=== PATIENT | female | born 1945 | race Caucasian/White ===

== ENCOUNTER 2022-11-18 00:47 | Day surgery (SDC) | payer MEDICARE, SELFPAY ==
[2022-11-09 15:12] VITALS: BMI 27.5
[2022-11-18 09:26] VITALS: PULSE 70; RESP 18; TEMP 36.3; O2SAT 97; BMI 27.3
[2022-11-18] MEDS: LACTATED RINGERS 1,000 ML 150 ML IV CONT (09:38)
--- NOTE | 2022-11-18 09:43 | PM.HPGS ---
History of Present Illness History of Present Illness Consent: Risks, benefits, and alternatives have been discussed and questions answered. Patient agrees to proceed with procedure. Chief complaint: positive cologuard Narrative: Lisa Littlejohn is a 77 year old female was referred for colon cancer screening. She had recently performed a Cologuard test which was positive. [facility] Family History Family History Sibling Family history of Alzheimer's disease Father Family history of lung cancer Social History Social History Smoking packs per day: 1 Smoking cigarettes per day: 20.0 Years smoked: 30 Smoking pack-years: 30.00 Smoking status: Former smoker Tobacco type: cigarettes Smoking end date: 09/13/01 Alcohol intake: current Substance use type: does not use Living arrangements: with family Spiritual care concerns: No Meds Home Medications and Allergies Home Medications Medication Instructions Recorded Confirmed Type Ca 600 mg-D3 20 mcg-mag oxide 50 1 tablet PO DAILY 11/09/22 11/18/22 History wh-La-[place]-manganese-boron tablet (Calcium 600-D3 Plus (mag-zinc)) amlodipine 5 mg tablet 5 mg PO DAILY 11/09/22 11/18/22 History ascorbic acid (vitamin C) 1,000 mg 1 g PO DAILY 11/09/22 11/18/22 History tablet atorvastatin 20 mg tablet 20 mg PO DAILY 11/09/22 11/18/22 History carbamazepine 200 mg tablet 200 mg PO TID 11/09/22 11/18/22 History cholecalciferol (vitamin D3) 25 25 mcg PO DAILY 11/09/22 11/18/22 History mcg (1,000 unit) tablet (Vitamin D3) cyanocobalamin (vitamin B-12) 500 500 mcg PO DAILY 11/09/22 11/18/22 History mcg tablet,extended release glucosamine sulfate 500 mg tablet 500 mg PO DAILY 11/09/22 11/18/22 History (Glucosamine) losartan 100 1 tablet PO DAILY 11/09/22 11/18/22 History mg-hydrochlorothiazide 25 mg tablet Allergies Allergy/AdvReac Type Severity Reaction Status Date / Time No Known Allergies Allergy Verified 11/18/22 09:22 Vital Signs Vital Signs - 24 hr 11/18/22 09:26 Temperature 36.3 C L Pulse Rate 70 Respiratory Rate 18 Pulse Oximetry 97 Oxygen Delivery Room Air Assessment and Plan Assessment and plan (1) Colon cancer screening: Code(s): Z12.11 - Encounter for screening for malignant neoplasm of colon Status: Acute Assessment and Plan: Colonoscopy with possible biopsy or polypectomy or cautery or injection of substances.
--- NOTE | 2022-11-18 09:51 | P.PNAN_ITS ---
Anes - Initial Pre Proc Eval Procedure: Operation Date: 11/18/22 10:30 Proposed Procedures p Colonoscopy - Ifeanyi Cyr MD Date/Time: 11/18/22 09:51 Surgeon: Ifeanyi Cyr MD Pre Op Diagnosis: positive cologuard Patient Data Age: 77 Gender: F Height: 1.65 m Weight: 74.5 kg Last Vital Signs Temp 97.3 F L 11/18/22 09:26 Pulse 70 11/18/22 09:26 Resp 18 11/18/22 09:26 Pulse Ox 97 11/18/22 09:26 O2 Del Method Room Air 11/18/22 09:26 Allergies Allergy/AdvReac Type Severity Reaction Status Date / Time No Known Allergies Allergy Verified 11/18/22 09:22 Home Medications Medication Instructions Recorded Confirmed Type Ca 600 mg-D3 20 mcg-mag oxide 50 1 tablet PO DAILY 11/09/22 11/18/22 History re-Dz-emalyz-manganese-boron tablet (Calcium 600-D3 Plus (mag-zinc)) amlodipine 5 mg tablet 5 mg PO DAILY 11/09/22 11/18/22 History ascorbic acid (vitamin C) 1,000 mg 1 g PO DAILY 11/09/22 11/18/22 History tablet atorvastatin 20 mg tablet 20 mg PO DAILY 11/09/22 11/18/22 History carbamazepine 200 mg tablet 200 mg PO TID 11/09/22 11/18/22 History cholecalciferol (vitamin D3) 25 25 mcg PO DAILY 11/09/22 11/18/22 History mcg (1,000 unit) tablet (Vitamin D3) cyanocobalamin (vitamin B-12) 500 500 mcg PO DAILY 11/09/22 11/18/22 History mcg tablet,extended release glucosamine sulfate 500 mg tablet 500 mg PO DAILY 11/09/22 11/18/22 History (Glucosamine) losartan 100 1 tablet PO DAILY 11/09/22 11/18/22 History mg-hydrochlorothiazide 25 mg tablet Patient hx anesthesia problems: none Family hx anesthesia problems: none Results Review: All pre-operative results and documents have been reviewed as part of the pre- operative evaluation. [facility] Family History Family History Sibling Family history of Alzheimer's disease Father Family history of lung cancer Social History Social History Smoking packs per day: 1 Smoking cigarettes per day: 20.0 Years smoked: 30 Smoking pack-years: 30.00 Smoking status: Former smoker Tobacco type: cigarettes Smoking end date: 09/13/01 Alcohol intake: current Substance use type: does not use Living arrangements: with family Spiritual care concerns: No Anes - Eval Final PreProcedure Day of Procedure 11/18/22 09:51 Patient weight: normal Heart: regular rate and rhythm Lungs: clear to auscultation Airway: Mallampati scale class II Neurological: alert and oriented Last oral intake: >/= 8 hours ASA classification: II Emergent: no Anesthetic plan: proceed Anesthesia type and monitoring: general GIVS and standard monitoring Results Review: All pre-operative results and documents have been reviewed as part of the pre- operative evaluation. Informed Consent: The patient's anesthetic plan and its attendant risks and benefits were discussed with the patient/family/POA. Questions were solicited and answers provided to the satisfaction of the patient/family/POA.
[2022-11-18 10:41] VITALS: BP 149/89; PULSE 69; RESP 19; O2SAT 99
[2022-11-18 10:51] VITALS: BP 150/94; PULSE 65; RESP 16; O2SAT 99
[2022-11-18 11:01] VITALS: BP 148/94; PULSE 66; RESP 15; O2SAT 100
--- NOTE | 2022-11-23 13:56 | PM.HPGS ---
History of Present Illness History of Present Illness Consent: Risks, benefits, and alternatives have been discussed and questions answered. Patient agrees to proceed with procedure. Chief complaint: positive cologuard Narrative: Lisa Littlejohn is a 77 year old female referred for colon cancer screening. She has been found have a positive Cologuard test. Review of Systems Review of Systems: All systems reviewed & are unremarkable except as noted in HPI and below PMFSH Family History Family History Sibling Family history of Alzheimer's disease Father Family history of lung cancer Social History Social History Smoking packs per day: 1 Smoking cigarettes per day: 20.0 Years smoked: 30 Smoking pack-years: 30.00 Smoking status: Former smoker Tobacco type: cigarettes Smoking end date: 09/13/01 Alcohol intake: current Substance use type: does not use Living arrangements: with family Spiritual care concerns: No Meds Home Medications and Allergies Home Medications Medication Instructions Recorded Confirmed Type Ca 600 mg-D3 20 mcg-mag oxide 50 1 tablet PO DAILY 11/09/22 11/18/22 History pm-Qy-qlcbuw-manganese-boron tablet (Calcium 600-D3 Plus (mag-zinc)) amlodipine 5 mg tablet 5 mg PO DAILY 11/09/22 11/18/22 History ascorbic acid (vitamin C) 1,000 mg 1 g PO DAILY 11/09/22 11/18/22 History tablet atorvastatin 20 mg tablet 20 mg PO DAILY 11/09/22 11/18/22 History carbamazepine 200 mg tablet 200 mg PO TID 11/09/22 11/18/22 History cholecalciferol (vitamin D3) 25 25 mcg PO DAILY 11/09/22 11/18/22 History mcg (1,000 unit) tablet (Vitamin D3) cyanocobalamin (vitamin B-12) 500 500 mcg PO DAILY 11/09/22 11/18/22 History mcg tablet,extended release glucosamine sulfate 500 mg tablet 500 mg PO DAILY 11/09/22 11/18/22 History (Glucosamine) losartan 100 1 tablet PO DAILY 11/09/22 11/18/22 History mg-hydrochlorothiazide 25 mg tablet Allergies Allergy/AdvReac Type Severity Reaction Status Date / Time No Known Allergies Allergy Verified 11/18/22 09:22 Exam Resp: Auscultation: clear to auscultation bilaterally Cardio: Rate: regular rate Rhythm: regular rhythm GI: GI Palp: Yes Soft to palpation and No Tenderness to palpation present (GI) Assessment and Plan Assessment and plan (1) Colon cancer screening: Code(s): Z12.11 - Encounter for screening for malignant neoplasm of colon Status: Acute Assessment and Plan: Colonoscopy with possible biopsy or polypectomy or cautery or injection of substances.
== END 2022-11-18 11:10 | disposition home or self-care (01) ==
PROVIDERS: PCP Family Medicine; Visit Provider Internal Medicine Gastroenterology
PROC: 0DJD8ZZ Inspection of Lower Intestinal Tract, Via Natural or Artificial Opening Endoscopic (ICD-10-PCS; CPT 45378; principal; 2022-11-18 10:30)
DX: Z12.11 Encounter for screening for malignant neoplasm of colon (principal); K57.30 Diverticulosis of large intestine without perforation or abscess without bleeding; R19.5 Other fecal abnormalities; Z87.891 Personal history of nicotine dependence
CPT/HCPCS: G0121; J2704; J7120

== ENCOUNTER 2024-03-01 19:17 | Emergency (ER) | payer MEDICARE, SELFPAY ==
[2024-03-01 19:30] VITALS: BP 156/85; PULSE 76; RESP 16; TEMP 36.8; O2SAT 97
[2024-03-01 19:33] VITALS: BP 156/85; PULSE 76; RESP 16; TEMP 36.8; O2SAT 97
--- NOTE | 2024-03-01 19:55 | ED.URI ---
HPI - URI/Sore Throat General Chief Complaint: Upper Respiratory Infection Stated Complaint: Cough/Chest Congestion Time Seen by Provider: 03/01/24 19:55 Source: patient and RN notes reviewed Mode of arrival: ambulatory Limitations: no limitations History of Present Illness HPI Narrative: 78-year-old female presents with concern for cough, chest congestion, shortness of breath, headache, body aches, chills, general malaise that started 6 days ago. She denies taking any huug-uou-zoetqbo medications for her symptoms. MD elicited complaint: cough Related Data Home Medications Medication Instructions Recorded Confirmed Ca 600 mg-D3 20 mcg-mag oxide 50 1 tablet PO DAILY 11/09/22 03/01/24 bx-Mv-wduhlr-manganese-boron tablet (Calcium 600-D3 Plus (mag-zinc)) amlodipine 5 mg tablet 5 mg PO DAILY 11/09/22 03/01/24 ascorbic acid (vitamin C) 1,000 mg 1 g PO DAILY 11/09/22 03/01/24 tablet atorvastatin 20 mg tablet 20 mg PO DAILY 11/09/22 03/01/24 carbamazepine 200 mg tablet 200 mg PO TID 11/09/22 03/01/24 cholecalciferol (vitamin D3) 25 25 mcg PO DAILY 11/09/22 03/01/24 mcg (1,000 unit) tablet (Vitamin D3) cyanocobalamin (vitamin B-12) 500 500 mcg PO DAILY 11/09/22 03/01/24 mcg tablet,extended release glucosamine sulfate 500 mg tablet 500 mg PO DAILY 11/09/22 03/01/24 (Glucosamine) losartan 100 1 tablet PO DAILY 11/09/22 03/01/24 mg-hydrochlorothiazide 25 mg tablet Allergies Allergy/AdvReac Type Severity Reaction Status Date / Time No Known Allergies Allergy Verified 03/01/24 19:33 Review of Systems Review of Systems: CONSTITUTIONAL: Reports malaise, chills, sweats EYES: Denies visual changes, redness, or discharge. ENT: Denies rhinorrhea, congestion, sinus pain, otalgia and sore throat. CARDIOVASCULAR: Denies chest pain, palpitations, or edema. RESPIRATORY: Reports cough, occasional dyspnea. GASTROINTESTINAL: Denies abdominal pain, nausea, vomiting, diarrhea SKIN: Denies rash or itching. MUSCULOSKELETAL: Reports myalgia. NEUROLOGIC: Reports headache. All systems reviewed & are unremarkable except as noted in HPI and below PMFSH Family History Family History Sibling Family history of Alzheimer's disease Father Family history of lung cancer Social History Social History Smoking packs per day: 1 Smoking cigarettes per day: 20.0 Years smoked: 30 Smoking pack-years: 30.00 Smoking status: Former smoker Tobacco type: cigarettes Smoking end date: 09/13/01 Alcohol intake: current Substance use type: does not use Living arrangements: with family Spiritual care concerns: No Comments At time of signature, agree with nursing past medical, surgical, social and family history. There is no relevant family history pertinent to the presenting complaint Exam Narrative: GENERAL: Nontoxic-appearing, well-nourished, and in no acute distress. HEAD: Normocephalic EYES: PERRLA, conjunctivae clear ENT: Nares clear. Mucous membranes moist. TM pearly shepherd with dull light reflex bilaterally; no tragal tenderness. Oropharynx not erythematous without lesions. Tonsils not enlarged and without exudate, no drooling, no hoarseness, no trismus, uvula midline. NECK: Supple. No lymphadenopathy CHEST: Clear to auscultation, breath sounds equal. No wheezing, rhonchi, rales, or stridor. No respiratory distress, speaks in full sentences. HEART: Regular rate and rhythm. No murmur heard. SKIN: Warm, dry, no rash. NEURO: Alert and oriented x3. PSYCH: Normal mood and affect Course Course Emergency Course: Patient is aware of diagnosis, understands and agrees to treatment plan. Anticipatory guidance given. Patient agrees to follow-up as directed and is aware of reasons to seek care at the emergency department. Portions of this record may have been created with voice recognition software
== END 2024-03-01 20:05 | disposition home or self-care (01) ==
PROVIDERS: Emergency Provider Nurse Practitioner
DX: J22 Unspecified acute lower respiratory infection (principal); Z87.891 Personal history of nicotine dependence
CPT/HCPCS: 99213; G0463